=== PATIENT | female | born 1995 | race Caucasian/White ===

== ENCOUNTER 2017-06-02 19:27 | Emergency (ER) | payer OTHER ==
[~2017-06-02] VITALS: Ht 162.6 cm; Wt 57.7 kg
[2017-06-02] MEDS ORDERED: HYDROmorphone PF 2 MG/ML VIAL ONE (20:44)
[2017-06-02] MEDS ORDERED: HYDROmorphone PF 2 MG/ML VIAL IM ONE (21:00)
[2017-06-02 21:39] VITALS: BP 96/44
[2017-06-02] MEDS ORDERED: HYDR-971 PO (22:02)
[2017-06-02] MEDS ORDERED: CYCL-331 PO (22:02)
--- NOTE | 2017-06-02 22:05 | PHYS DOC ---
General Chief Complaint: Neck Pain Stated Complaint: NECK AND SHOULDER PAIN Time Seen by MD: 20:26 Source: patient Exam Limitations: no limitations Problems: History of Present Illness Initial Comments 21-year-old female to the emergency department complaining of neck and shoulder pain. Patient states that she awoke this morning with cervical muscle pain and stiffness also complains of bilateral trapezius stiffness and pain. Denies any trauma or new workouts no recent repetitive motions nothing to explain onset of her symptoms. No midline or bony pain no fever or rash, no arm weakness numbness tingling or radiating symptoms. Pain is described as severe sharp and intense worse with certain movements better with rest. On evaluation the patient is reticent to move appears to be in moderate distress due to her pain. Timing/Duration: other Severity: severe Modifying Factors: worse with movement, improves with rest Associated Symptoms: other Allergies: Coded Allergies: No Known Drug Allergies (Unverified , 06/02/17) Past Medical History Medical History: no pertinent history Surgical History: noncontributory Social History Smoker: non-smoker Alcohol: none Drugs: none Review of Systems Constitutional: denies chills, denies diaphoresis, denies fever, denies malaise Respiratory: denies cough, denies shortness of breath Cardiovascular: denies chest pain, denies palpitations Gastrointestinal: denies nausea, denies vomiting Musculoskeletal: see HPI Psychiatric/Neurological: see HPI Physical Exam General Appearance: mild distress (pain expression) Ear, Nose, Throat: hearing grossly normal, normal ENT inspection Neck: other (no midline tenderness no swelling or ecchymosis, bilateral posterior cervical and trapezius hypertonicity with mild tenderness, cervical range of motion decreased all directions) Respiratory: normal breath sounds, no respiratory distress Back: no CVA tenderness, no vertebral tenderness Extremities: non-tender, normal inspection 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 She is able to move her head freely all directions with normal range of motion and mild soreness. Departure Time of Disposition: 22:04 Disposition: 01 HOME, SELF-CARE Diagnosis: torticollis Condition: IMPROVED Patient Instructions: Torticollis, Acute Additional Instructions: Please review the patient education materials given by ED staff. Aggressive hydration with Gatorade and water. Asbo-crp-xgbzewx ibuprofen 600 mg every 6 hours for baseline discomfort. Prescription: Cyclobenzaprine, [place] 5 mg quantity 15 Take medications with food to avoid nausea. Take [id number]-hev-[id number] stool softeners to avoid constipation with [place]. Heating pad 15-20 minutes followed by gentle stretching 4-6 times daily. Follow-up with your doctor in 5-7 days if not better. Return to the ED with new or changing symptoms. STEF GOODWIN DO Jun 02, 2017 22:05
== END 2017-06-02 22:19 | disposition home or self-care (01) ==
LOC: ER 19:27
DX: M43.6 Torticollis (principal)
CPT/HCPCS: 81025; 96372; 99283; J1170